=== PATIENT | male | born 1955 | race Caucasian/White ===

== ENCOUNTER 2016-09-10 09:59 | Outpatient (CLI) | payer OTHER | END 2016-09-10 10:00 | disposition home or self-care (01) | DX: I10 Essential (primary) hypertension (principal); E78.5 Hyperlipidemia, unspecified; Z12.5 Encounter for screening for malignant neoplasm of prostate; I35.0 Nonrheumatic aortic (valve) stenosis ==

== ENCOUNTER 2016-09-26 09:14 | Outpatient (CLI) | payer OTHER | END 2016-09-26 09:15 | disposition home or self-care (01) | DX: I08.0 Rheumatic disorders of both mitral and aortic valves (principal) ==

== ENCOUNTER 2018-03-19 13:51 | Outpatient (CLI) | payer OTHER | END 2018-03-19 13:52 | disposition home or self-care (01) | LOC: DI 13:51 | PROVIDERS: ATTEND Internal Medicine | DX: I48.0 Paroxysmal atrial fibrillation (principal); I08.0 Rheumatic disorders of both mitral and aortic valves | CPT/HCPCS: 93306 ==

== ENCOUNTER 2018-03-24 10:27 | Outpatient (CLI) | payer OTHER ==
[2018-03-24 11:14] LABS: INR 2.6 (0.8-1.2); PT - PROTHROMBIN TIME 28.3 secs (9.9-12.6)
== END 2018-03-24 10:28 | disposition home or self-care (01) ==
LOC: LAB 10:27
PROVIDERS: ATTEND Internal Medicine Cardiovascular Disease
DX: I48.0 Paroxysmal atrial fibrillation (principal)
CPT/HCPCS: 36415; 85610

== ENCOUNTER 2018-03-27 08:00 | Outpatient (CLI) | payer OTHER | END 2018-03-27 08:01 | disposition home or self-care (01) | LOC: LAB.N 08:00 | PROVIDERS: ATTEND Internal Medicine Cardiovascular Disease | DX: I48.0 Paroxysmal atrial fibrillation (principal) | CPT/HCPCS: 85610 ==

== ENCOUNTER 2018-03-30 09:04 | Outpatient (CLI) | payer OTHER | END 2018-03-30 09:05 | disposition home or self-care (01) | LOC: LAB.N 09:04 | PROVIDERS: ATTEND Internal Medicine Cardiovascular Disease | DX: I48.0 Paroxysmal atrial fibrillation (principal) | CPT/HCPCS: 85610 ==

== ENCOUNTER 2018-04-07 08:00 | Outpatient (CLI) | payer OTHER | END 2018-04-07 08:01 | disposition home or self-care (01) | LOC: LAB.N 08:00 | PROVIDERS: ATTEND Internal Medicine Cardiovascular Disease | DX: I48.0 Paroxysmal atrial fibrillation (principal) | CPT/HCPCS: 85610 ==

== ENCOUNTER 2018-04-10 07:22 | Outpatient (CLI) | payer OTHER | END 2018-04-10 07:23 | disposition home or self-care (01) | LOC: LAB.F 07:22 | PROVIDERS: ATTEND Internal Medicine Cardiovascular Disease | DX: I48.0 Paroxysmal atrial fibrillation (principal) | CPT/HCPCS: 85610 ==

== ENCOUNTER 2018-04-14 08:00 | Outpatient (CLI) | payer OTHER | END 2018-04-14 08:01 | disposition home or self-care (01) | LOC: LAB.N 08:00 | PROVIDERS: ATTEND Internal Medicine Cardiovascular Disease | DX: I48.0 Paroxysmal atrial fibrillation (principal) | CPT/HCPCS: 85610 ==

== ENCOUNTER 2018-04-17 08:21 | Outpatient (CLI) | payer OTHER | END 2018-04-17 08:22 | disposition home or self-care (01) | LOC: LAB.N 08:21 | PROVIDERS: ATTEND Internal Medicine Cardiovascular Disease | DX: I48.0 Paroxysmal atrial fibrillation (principal) | CPT/HCPCS: 85610 ==

== ENCOUNTER 2018-04-23 08:06 | Outpatient (CLI) | payer OTHER | END 2018-04-23 08:07 | disposition home or self-care (01) | LOC: LAB.N 08:06 | PROVIDERS: ATTEND Internal Medicine Cardiovascular Disease | DX: I48.0 Paroxysmal atrial fibrillation (principal) | CPT/HCPCS: 85610 ==

== ENCOUNTER 2018-04-28 07:55 | Outpatient (CLI) | payer OTHER | END 2018-04-28 07:56 | disposition home or self-care (01) | LOC: LAB.N 07:55 | PROVIDERS: ATTEND Internal Medicine Cardiovascular Disease | DX: I48.0 Paroxysmal atrial fibrillation (principal) | CPT/HCPCS: 85610 ==

== ENCOUNTER 2018-05-04 07:52 | Outpatient (CLI) | payer OTHER | END 2018-05-04 07:53 | disposition home or self-care (01) | LOC: LAB.N 07:52 | PROVIDERS: ATTEND Internal Medicine Cardiovascular Disease | DX: I48.0 Paroxysmal atrial fibrillation (principal) | CPT/HCPCS: 85610 ==

== ENCOUNTER 2018-05-22 08:34 | Outpatient (CLI) | payer OTHER | END 2018-05-22 08:35 | disposition home or self-care (01) | LOC: LAB.F 08:34 | PROVIDERS: ATTEND Family Medicine | DX: Z79.01 Long term (current) use of anticoagulants (principal) | CPT/HCPCS: 85610 ==

== ENCOUNTER 2018-05-25 07:47 | Outpatient (CLI) | payer OTHER | END 2018-05-25 07:48 | disposition home or self-care (01) | LOC: LAB.N 07:47 | PROVIDERS: ATTEND Internal Medicine Cardiovascular Disease | DX: I48.0 Paroxysmal atrial fibrillation (principal); Z79.01 Long term (current) use of anticoagulants | CPT/HCPCS: 85610 ==

== ENCOUNTER 2018-06-01 07:40 | Outpatient (CLI) | payer OTHER | END 2018-06-01 07:41 | disposition home or self-care (01) | LOC: LAB.N 07:40 | PROVIDERS: ATTEND Internal Medicine | DX: Z95.2 Presence of prosthetic heart valve (principal) | CPT/HCPCS: 85610 ==

== ENCOUNTER 2018-06-08 08:00 | Outpatient (CLI) | payer OTHER | END 2018-06-08 08:01 | disposition home or self-care (01) | LOC: LAB.N 08:00 | PROVIDERS: ATTEND Internal Medicine | DX: Z95.2 Presence of prosthetic heart valve (principal) | CPT/HCPCS: 85610 ==

== ENCOUNTER 2018-07-06 08:04 | Outpatient (CLI) | payer OTHER | END 2018-07-06 08:05 | disposition home or self-care (01) | LOC: LAB.N 08:04 | PROVIDERS: ATTEND Internal Medicine | DX: Z95.2 Presence of prosthetic heart valve (principal) | CPT/HCPCS: 85610 ==

== ENCOUNTER 2018-07-13 07:40 | Outpatient (CLI) | payer OTHER | END 2018-07-13 07:41 | disposition home or self-care (01) | LOC: LAB.N 07:40 | PROVIDERS: ATTEND Internal Medicine | DX: Z95.2 Presence of prosthetic heart valve (principal) | CPT/HCPCS: 85610 ==

== ENCOUNTER 2018-07-17 07:40 | Outpatient (CLI) | payer OTHER ==
[2018-07-17 12:21] LABS: PT - PROTHROMBIN TIME 22.6 secs (9.9-12.6)
== END 2018-07-17 07:41 | disposition home or self-care (01) ==
LOC: LAB.N 07:40
PROVIDERS: ATTEND Internal Medicine
DX: Z79.01 Long term (current) use of anticoagulants (principal)
CPT/HCPCS: 36415; 85610

== ENCOUNTER 2018-07-27 11:42 | Outpatient (CLI) | payer OTHER | END 2018-07-27 11:43 | disposition home or self-care (01) | LOC: LAB.N 11:42 | PROVIDERS: ATTEND Internal Medicine | DX: Z95.2 Presence of prosthetic heart valve (principal) | CPT/HCPCS: 85610 ==

== ENCOUNTER 2018-08-04 08:00 | Outpatient (CLI) | payer OTHER | END 2018-08-04 08:01 | disposition home or self-care (01) | LOC: LAB.N 08:00 | PROVIDERS: ATTEND Internal Medicine | DX: Z95.2 Presence of prosthetic heart valve (principal) | CPT/HCPCS: 85610 ==

== ENCOUNTER 2018-09-04 10:56 | Outpatient (CLI) | payer OTHER | END 2018-09-04 23:59 | disposition home or self-care (01) | LOC: LAB.N 10:56 | PROVIDERS: ATTEND Internal Medicine | DX: Z95.2 Presence of prosthetic heart valve (principal) | CPT/HCPCS: 85610 ==

== ENCOUNTER 2018-10-16 08:00 | Outpatient (CLI) | payer BC | END 2018-10-16 23:59 | disposition home or self-care (01) | LOC: LAB.N 08:00 | PROVIDERS: ATTEND Internal Medicine | DX: Z95.2 Presence of prosthetic heart valve (principal) | CPT/HCPCS: 85610 ==

== ENCOUNTER 2018-11-23 10:40 | Outpatient (CLI) | payer BC | END 2018-11-23 23:59 | LOC: LAB.N 10:40 | PROVIDERS: ATTEND Internal Medicine | DX: Z95.2 Presence of prosthetic heart valve (principal) | CPT/HCPCS: 85610 ==

== ENCOUNTER 2018-12-02 08:00 | Outpatient (CLI) | payer BC | END 2018-12-02 23:59 | disposition home or self-care (01) | LOC: LAB.N 08:00 | PROVIDERS: ATTEND Internal Medicine | DX: Z95.2 Presence of prosthetic heart valve (principal) | CPT/HCPCS: 85610 ==

== ENCOUNTER 2018-12-11 14:54 | Emergency (ER) | payer OTHER, BC ==
[2018-12-11 15:04] VITALS: BP 154/74
--- NOTE | 2018-12-11 15:30 | ED Physician Documentation ---
PD HPI LOWER EXT INJURY - Stated complaint Stated Complaint: L KNEE INJ - Chief complaint Chief Complaint: General - History obtained from History obtained from: Patient - History of Present Illness PD HPI LOW EXT INJURY LOCATION: Left, Knee Type of injury: Twist Where injury occurred: Work Timing - onset: How many hours ago (2) Timing - duration: Hours (2) Timing - details: Abrupt onset Pain level max: 6 Pain level now: 2 Improved by: Rest, Ice, Immobilization Worsened by: Moving, Palpating, Other (walking) Associated symptoms: No: Weakness, Numbness, Tingling, Swelling Contributing factors: No: Anticoagulated, Prior ortho surgery Recently seen: Not recently seen - Additional information Additional information: Patient twisted his left knee stepping out of an ambulance Review of Systems Constitutional: denies: Fever GI: denies: Vomiting Musculoskeletal: denies: Neck pain, Back pain Neurologic: denies: Headache PD PAST MEDICAL HISTORY - Past Medical History Past Medical History: No - Allergies Allergies/Adverse Reactions: Allergies Allergy/AdvReac Type Severity Reaction Status Date / Time No Known Drug Allergies Allergy Verified 12/11/18 15:04 - Social History Does the pt smoke?: No Smoking Status: Never smoker PD ED PE NORMAL - Vitals Vital signs reviewed: Yes - General General: Alert and oriented X 3, No acute distress - HEENT HEENT: Moist mucous membranes - Neck Neck: Supple, no meningeal sign - Cardiac Cardiac: RRR - Respiratory Respiratory: No respiratory distress, Clear bilaterally - Derm Derm: Warm and dry - Extremities Extremities: Other (Left knee -No joint effusion. No swelling. No bony te nderness. ACL, MCL, PCL, LCL are intact. Neurovascularly intact) - Neuro Neuro: Alert and oriented X 3 - Psych Psych: Normal mood, Normal affect Results - Vitals Vitals: Vital Signs - 24 hr 12/11/18 15:02 Temperature 36.4 C L Heart Rate 81 Respiratory 16 Rate Blood Pressure 154/74 H O2 Saturation 97 Oxygen O2 Source Room air - Rads (name of study) Left knee x-ray Radiology: Prelim report reviewed, EMP read contemporaneously, See rad report (Degenerative changes with small effusion. No acute fracture. ) PD MEDICAL DECISION MAKING - ED course Complexity details: reviewed results, re-evaluated patient, considered differential, d/w patient ED course: 63-year-old male presents the emergency department with what appears to be a left knee sprain. Small joint effusion. Placed in an articulating knee brace for comfort. Will follow up with his doctor. Patient counseled regarding signs and symptoms for which I believe and urgent re-evaluation would be necessary. Patient with good understanding of and agreement to plan and is comfortable going home at this time This document was made in part using voice recognition software. While efforts are made to proofread this document, sound alike and grammatical errors may occur. Departure - Departure Disposition: 01 Home, Self Care Clinical Impression: Left knee sprain Qualifiers: Encounter type: initial encounter Involved ligament of knee: unspecified ligament Qualified Code(s): S83.92XA - Sprain of unspecified site of left knee, initial encounter Osteoarthritis Qualifiers: Osteoarthritis location: unspecified site Osteoarthritis type: unspecified Qualified Code(s): M19.90 - Unspecified osteoarthritis, unspecified site Condition: Good Instructions: ED Sprain Knee Follow-Up: Avtar Torres MD [Primary Care Provider] - Within 1 week Comments: Wear the brace for comfort. Return if you worsen. You need to be reevaluated by your doctor prior to returning to work. Your x-ray shows a small joint effusion and arthritis in the knee. Forms: Activity restrictions Discharge Date/Time: 12/11/18 16:41
--- NOTE | 2018-12-11 15:52 | XRAY Report ---
Reason: L knee twist Procedure Date: 12/11/2018 Accession Number: [id number] / [id number] Procedure: XR - Knee 4 View LT CPT Code: FULL RESULT: EXAM: LEFT KNEE RADIOGRAPHY EXAM DATE: 12/11/2018 03:39 PM. CLINICAL HISTORY: Left knee twist. COMPARISON: None. TECHNIQUE: 3 views. FINDINGS: Bones: No acute fracture or bone lesion. Moderate to large spurring off the anterior patella at the patella tendon attachments. Mild prominence of the anterior tibial apophysis. Joints: Mild 3 compartment osteophyte greatest in the patellofemoral compartment. Moderate osteophyte of the proximal tib-fib articulation. Small suprapatellar effusion. Soft Tissues: Normal. No soft tissue swelling. IMPRESSION: Degenerative changes with small effusion. No acute fracture. RADIA
== END 2018-12-11 16:41 | disposition home or self-care (01) ==
LOC: ED 14:54
DX: S83.92XA Sprain of unspecified site of left knee, initial encounter (principal); X50.1XXA Overexertion from prolonged static or awkward postures, initial encounter; Y99.0 Civilian activity done for income or pay; M19.90 Unspecified osteoarthritis, unspecified site
CPT/HCPCS: 99283

== ENCOUNTER 2018-12-31 07:56 | Outpatient (CLI) | payer BC | END 2018-12-31 23:59 | disposition home or self-care (01) | LOC: LAB.N 07:56 | PROVIDERS: ATTEND Internal Medicine | DX: Z95.2 Presence of prosthetic heart valve (principal) | CPT/HCPCS: 85610 ==

== ENCOUNTER 2019-01-01 08:47 | Outpatient (CLI) | payer OTHER ==
[~2019-01-01 08:47] MED LIST: BUFFERED LIDOCAINE 10 ML SYRINGE ONE; GADOPENTETATE DIMEGLUMINE 5 ML VIAL IVP ONE; IOTHALAMATE MEGLUMINE 50 ML VIAL ONE
--- NOTE | 2019-01-01 12:32 | XRAY Report ---
Reason: KNEE JOINT PAIN,LEFT Procedure Date: 01/01/2019 Accession Number: [id number] / [id number] Procedure: FL - Arthrogram Needle Placement CPT Code: FULL RESULT: EXAM: LEFT KNEE ARTHROGRAPHIC INJECTION WITH FLUOROSCOPIC GUIDANCE EXAM DATE: 01/01/2019 09:59 AM. CLINICAL HISTORY: Knee joint pain, left. COMPARISON: ARTHROGRAM KNEE LT 01/01/2019 10:28 AM. TECHNIQUE: The risks, benefits, and alternatives of the procedure were discussed with the patient. All questions were answered. Written and verbal consent were obtained. The knee joint was marked under fluoroscopy and prepped and draped in a sterile manner. Local anesthesia was performed with 1% lidocaine. A 22-gauge needle was then inserted into the knee joint. 20 mL of a solution containing 50% iodinated contrast and a 1:200 dilution of gadolinium contrast in sterile saline was then injected. The needle was removed without immediate complication. Other: None. Fluoroscopy Time: 0.1 minutes. Number of Images: 12. FINDINGS: Bones and joints: No fracture or subluxation. Injection: Fluoroscopic images demonstrate needle placement and contrast in the knee joint. IMPRESSION: Successful fluoroscopically guided arthrographic injection of the knee. RADIA
[2019-01-01] MEDS ORDERED: GADOPENTETATE DIMEGLUMINE 5 ML VIAL IVP ONE ×2 (15:19)
[2019-01-01] MEDS ORDERED: BUFFERED LIDOCAINE 10 ML SYRINGE IU ONE ×2 (15:19)
[2019-01-01] MEDS ORDERED: IOTHALAMATE MEGLUMINE 50 ML VIAL IVP ONE ×2 (15:19)
--- NOTE | 2019-01-01 16:44 | MRI Report ---
Reason: KNEE JOINT PAIN,LEFT Procedure Date: 01/01/2019 Accession Number: [id number] / [id number] Procedure: MRI - Arthrogram Knee LT CPT Code: FULL RESULT: EXAM: LEFT KNEE MRI ARTHROGRAM WITH CONTRAST EXAM DATE: 01/01/2019 10:28 AM. CLINICAL HISTORY: Left knee joint pain. COMPARISON: KNEE 4 VIEW LT 12/11/2018 3:17 PM. TECHNIQUE: Multiplanar, multisequence T1-weighted and fluid-sensitive sequences of the knee after an arthrographic injection of dilute gadolinium, dictated under a separate exam. Other: None. FINDINGS: Bones: No fractures or subluxations. No marrow edema. No bone lesions. Mild spurring medial femoral condyle. Mild spurring medial patellar facet. Large superior and inferior patella enthesophytes. Mild spurring anterior aspect medial femoral condyle. Moderate spurring posterior aspect medial distal femur metaphysis superior gutter. Articular Cartilage: Moderate grade 3 chondromalacia medial femoral condyle. Mild chondromalacia trochlear groove. Mild focal chondromalacia medial patellar facet. Medial Meniscus: Radial oblique tear posterior horn medial meniscus at the meniscal root. Oblique tear medial meniscus body with extension to the inferior articular surface. Lateral Meniscus: The lateral meniscus is intact. Cruciate Ligaments: The anterior and posterior cruciate ligaments are intact. Collateral Ligaments: The medial collateral and lateral collateral ligamentous structures are intact. Tendons: The quadriceps, patellar, semimembranosus, and popliteus tendons are unremarkable. Musculature: No edema or fatty atrophy. Other: No popliteal cyst. Cluster of 6 mm or less osseous bodies posterior joint space intercondylar fossa. The medial and lateral retinacula are intact. The subcutaneous tissues and fat pads are unremarkable. Large 1.1 cm osteophyte medial aspect proximal tibiofibular articulation. Probable osseous body 8 mm anterior aspect anterior horn lateral meniscus posterior margin infrapatellar fat pad. Possible osseous body 9 mm deep to the iliotibial band adjacent to the lateral condyle superior gutter (image 3 series 501). IMPRESSION: 1. Radial oblique tear posterior horn medial meniscus at the meniscal root and oblique tear medial meniscus body with extension to the inferior articular surface. 2. Large superior and inferior patella enthesophytes at the quadriceps tendon insertion and patellar tendon origin. Correlate with seronegative spondyloarthropathy. 3. Osseous body 8 mm anterior aspect anterior horn lateral meniscus posterior margin of the infrapatellar fat pad. 4. Cluster of multiple 6 mm or less osseous bodies posterior joint space intercondylar fossa (image 17 series 501). 5. Large osteophyte medial aspect proximal tibiofibular articulation. RADIA
== END 2019-01-01 08:48 | disposition home or self-care (01) ==
LOC: DI 08:47
PROVIDERS: ATTEND Physician Assistant Medical
DX: S83.242A Other tear of medial meniscus, current injury, left knee, initial encounter (principal); M76.892 Other specified enthesopathies of left lower limb, excluding foot; M23.42 Loose body in knee, left knee; M25.762 Osteophyte, left knee
CPT/HCPCS: 27369; 73722; 77002; Q9961

== ENCOUNTER 2019-01-08 13:29 | Outpatient (CLI) | payer BC | END 2019-01-08 23:59 | disposition home or self-care (01) | LOC: LAB.N 13:29 | PROVIDERS: ATTEND Internal Medicine | DX: Z95.2 Presence of prosthetic heart valve (principal) | CPT/HCPCS: 85610 ==

== ENCOUNTER 2019-01-19 07:27 | Outpatient (CLI) | payer BC | END 2019-01-19 07:28 | disposition home or self-care (01) | LOC: LAB.F 07:27 | PROVIDERS: ATTEND Internal Medicine | DX: Z95.2 Presence of prosthetic heart valve (principal) | CPT/HCPCS: 85610 ==

== ENCOUNTER 2019-02-11 14:55 | Outpatient (CLI) | payer BC | END 2019-02-11 23:59 | disposition home or self-care (01) | LOC: LAB.N 14:55 | PROVIDERS: ATTEND Internal Medicine | DX: Z95.2 Presence of prosthetic heart valve (principal) | CPT/HCPCS: 85610 ==

== ENCOUNTER 2019-03-02 08:00 | Outpatient (CLI) | payer BC | END 2019-03-02 08:01 | disposition home or self-care (01) | LOC: LAB.N 08:00 | PROVIDERS: ATTEND Internal Medicine | DX: Z95.2 Presence of prosthetic heart valve (principal) | CPT/HCPCS: 85610 ==

== ENCOUNTER 2019-03-12 09:31 | Outpatient (CLI) | payer BC | END 2019-03-12 23:59 | disposition home or self-care (01) | LOC: LAB.N 09:31 | PROVIDERS: ATTEND Internal Medicine | DX: Z95.2 Presence of prosthetic heart valve (principal) | CPT/HCPCS: 85610 ==

== ENCOUNTER 2019-04-20 08:00 | Outpatient (CLI) | payer BC | END 2019-04-20 23:59 | disposition home or self-care (01) | LOC: LAB.N 08:00 | PROVIDERS: ATTEND Internal Medicine | DX: Z95.2 Presence of prosthetic heart valve (principal) | CPT/HCPCS: 85610 ==

== ENCOUNTER 2019-05-03 14:29 | Outpatient (CLI) | payer BC | END 2019-05-03 14:35 | disposition home or self-care (01) | LOC: LAB.N 14:29 | PROVIDERS: ATTEND Family Medicine | DX: I48.0 Paroxysmal atrial fibrillation (principal); Z79.01 Long term (current) use of anticoagulants | CPT/HCPCS: 85610 ==

== ENCOUNTER 2019-05-31 08:00 | Outpatient (CLI) | payer BC | END 2019-05-31 08:15 | disposition home or self-care (01) | LOC: LAB.N 08:00 | PROVIDERS: ATTEND Family Medicine | DX: I48.0 Paroxysmal atrial fibrillation (principal); Z79.01 Long term (current) use of anticoagulants | CPT/HCPCS: 85610 ==

== ENCOUNTER 2019-06-07 08:00 | Outpatient (CLI) | payer BC | END 2019-06-07 08:15 | disposition home or self-care (01) | LOC: LAB.N 08:00 | PROVIDERS: ATTEND Family Medicine | DX: I48.0 Paroxysmal atrial fibrillation (principal); Z79.01 Long term (current) use of anticoagulants | CPT/HCPCS: 85610 ==

== ENCOUNTER 2019-06-21 08:26 | Outpatient (CLI) | payer BC | END 2019-06-21 23:59 | disposition home or self-care (01) | LOC: LAB.N 08:26 | PROVIDERS: ATTEND Family Medicine | DX: I48.0 Paroxysmal atrial fibrillation (principal); Z79.01 Long term (current) use of anticoagulants | CPT/HCPCS: 85610 ==

== ENCOUNTER 2019-06-30 07:53 | Outpatient (CLI) | payer BC | END 2019-06-30 23:59 | disposition home or self-care (01) | LOC: LAB.N 07:53 | PROVIDERS: ATTEND Family Medicine | DX: I48.0 Paroxysmal atrial fibrillation (principal); Z79.01 Long term (current) use of anticoagulants | CPT/HCPCS: 85610 ==

== ENCOUNTER 2019-07-08 08:00 | Outpatient (CLI) | payer BC | END 2019-07-08 23:59 | disposition home or self-care (01) | LOC: LAB.N 08:00 | PROVIDERS: ATTEND Family Medicine | DX: I48.0 Paroxysmal atrial fibrillation (principal); Z79.01 Long term (current) use of anticoagulants | CPT/HCPCS: 85610 ==

== ENCOUNTER 2019-09-24 08:00 | Outpatient (CLI) | payer BC | END 2019-09-24 23:59 | disposition home or self-care (01) | LOC: LAB.N 08:00 | PROVIDERS: ATTEND Family Medicine | DX: Z79.01 Long term (current) use of anticoagulants (principal); I48.0 Paroxysmal atrial fibrillation | CPT/HCPCS: 85610 ==

== ENCOUNTER 2019-10-22 08:33 | Outpatient (CLI) | payer BC | END 2019-10-22 23:59 | disposition home or self-care (01) | LOC: LAB.N 08:33 | PROVIDERS: ATTEND Family Medicine | DX: I48.0 Paroxysmal atrial fibrillation (principal); Z79.01 Long term (current) use of anticoagulants | CPT/HCPCS: 85610 ==

== ENCOUNTER 2020-01-11 08:56 | Outpatient (CLI) | payer BC | END 2020-01-11 08:57 | disposition home or self-care (01) | LOC: LAB 08:56 | PROVIDERS: ATTEND Family Medicine | DX: I48.0 Paroxysmal atrial fibrillation (principal); Z79.01 Long term (current) use of anticoagulants | CPT/HCPCS: 85610 ==

== ENCOUNTER 2020-01-20 09:32 | Outpatient (CLI) | payer BC | END 2020-01-20 09:33 | disposition home or self-care (01) | LOC: LAB 09:32 | PROVIDERS: ATTEND Family Medicine | DX: I48.0 Paroxysmal atrial fibrillation (principal); Z79.01 Long term (current) use of anticoagulants | CPT/HCPCS: 85610 ==

== ENCOUNTER 2020-02-09 08:33 | Outpatient (CLI) | payer BC | END 2020-02-09 08:34 | disposition home or self-care (01) | LOC: LAB 08:33 | PROVIDERS: ATTEND Family Medicine | DX: I48.0 Paroxysmal atrial fibrillation (principal); Z79.01 Long term (current) use of anticoagulants | CPT/HCPCS: 85610 ==

== ENCOUNTER 2020-05-11 08:48 | Outpatient (CLI) | payer BC | END 2020-05-11 08:49 | disposition home or self-care (01) | LOC: LAB 08:48 | PROVIDERS: ATTEND Family Medicine | DX: I48.0 Paroxysmal atrial fibrillation (principal); Z79.01 Long term (current) use of anticoagulants | CPT/HCPCS: 85610 ==

== ENCOUNTER 2020-05-19 08:11 | Outpatient (CLI) | payer BC | END 2020-05-19 08:12 | disposition home or self-care (01) | LOC: LAB 08:11 | PROVIDERS: ATTEND Family Medicine | DX: I48.0 Paroxysmal atrial fibrillation (principal); Z79.01 Long term (current) use of anticoagulants | CPT/HCPCS: 85610 ==

== ENCOUNTER 2020-06-01 11:33 | Emergency (ER) | payer BC ==
--- NOTE | 2020-06-01 12:48 | ED Physician Documentation ---
History of Present Illness - Stated complaint Stated Complaint: R HAND SWELLING/BRUISING - Chief complaint Chief Complaint: Ext Problem - History obtained from History obtained from: Patient - Additonal information Additional information: 65 yo M who is on coumadin presents with right forearm swelling and contusion. Pt states that about a week ago he was showing off for his grandkids and was doing one-armed push ups. He felt a pop in his forearm and thereafter had a large contusion of the forearm. The bruising is improving though he continues to have some swelling in the hand distal to the injury. He has no pain, no paraesthesia, no difficulty moving the arm. Hasn't attempted any medication for this but has been trying to keep it elevated. Review of Systems Ten Systems: 10 systems reviewed and negative PD PAST MEDICAL HISTORY - Allergies Allergies/Adverse Reactions: Allergies Allergy/AdvReac Type Severity Reaction Status Date / Time No Known Drug Allergies Allergy Verified 06/01/20 11:40 - Social History Does the pt smoke?: No Smoking Status: Never smoker PD ED PE NORMAL - Vitals Vital signs reviewed: Yes - General General: Alert and oriented X 3, No acute distress, Well developed/nourished - Cardiac Cardiac: RRR, No murmur, No gallop, No rub - Respiratory Respiratory: No respiratory distress, Clear bilaterally - Derm Derm: Normal color, Warm and dry, Other (moderate contusion right forearm, forearm is soft and non-tender. No open areas of skin. ) - Extremities Extremities: No deformity, No tenderness to palpate, Normal ROM s pain, Other (mild swelling right hand, non-tender, no erythema. Contusion of the forearm non-tender, soft, as noted above. No erythema. Full elbow/wrist/hand ROM. ) - Neuro Neuro: Alert and oriented X 3 Eye Opening: Spontaneous Motor: Obeys Commands Verbal: Oriented GCS Score: 15 - Psych Psych: Normal mood, Normal affect Results - Vitals Vitals: Vital Signs - 24 hr 06/01/20 11:40 Temperature 36.9 C Heart Rate 70 Respiratory 16 Rate Blood Pressure 142/69 H O2 Saturation 97 Oxygen O2 Source Room air PD MEDICAL DECISION MAKING - ED course Complexity details: considered differential, d/w patient ED course: Pt presented w/ right forearm contusion. He showed me a picture from several days ago and there is notable improvement in the contusion today. He had mild right hand swelling but no erythema or signs of infection. He has no tenderness and has full ROM of the forearm. He likely tore some muscle when attempting one- armed pushups and bled into the forearm, which was worsened since he is on coumadin. The contusion is soft, there is no hematoma, and I advised pt that it would dissipate w/ time. No specific imaging or intervention is necessary, pt may keep the limb elevated. Return precautions reviewed w/ pt. Departure - Departure Disposition: 01 Home, Self Care Clinical Impression: Contusion of muscle, Bleeding on Coumadin Condition: Good Comments: You presented with left arm swelling and bruising after likely tearing muscles in your forearm. You are on coumadin which can cause more bleeding and bruising. The bruising is improving and will continue to improve over the next days to weeks. There is no specific treatment, but you can elevate your arm to help with the swelling. If you develop sudden pain, paraesthesia, or feel it is worsening, follow up with primary doctor or return to the ER.
[2020-06-01 13:16] VITALS: BP 135/75
== END 2020-06-01 13:17 | disposition home or self-care (01) ==
LOC: ED 11:33
DX: S50.11XA Contusion of right forearm, initial encounter (principal); X58.XXXA Exposure to other specified factors, initial encounter; Y93.B2 Activity, push-ups, pull-ups, sit-ups; Z79.01 Long term (current) use of anticoagulants; I48.0 Paroxysmal atrial fibrillation
CPT/HCPCS: 85610; 99281

== ENCOUNTER 2020-06-01 12:48 | Outpatient (CLI) | payer BC | END 2020-06-01 12:49 | disposition home or self-care (01) | LOC: LAB 12:48 | PROVIDERS: ATTEND Family Medicine | DX: I48.0 Paroxysmal atrial fibrillation (principal); Z79.01 Long term (current) use of anticoagulants | CPT/HCPCS: 85610 ==

== ENCOUNTER 2020-06-29 08:28 | Outpatient (CLI) | payer BC | END 2020-06-29 08:29 | disposition home or self-care (01) | LOC: LAB 08:28 | PROVIDERS: ATTEND Family Medicine | DX: I48.0 Paroxysmal atrial fibrillation (principal); Z79.01 Long term (current) use of anticoagulants | CPT/HCPCS: 85610 ==

== ENCOUNTER 2020-07-19 09:25 | Outpatient (CLI) | payer BC | END 2020-07-19 09:26 | disposition home or self-care (01) | LOC: LAB.N 09:25 | PROVIDERS: ATTEND Family Medicine | DX: I48.0 Paroxysmal atrial fibrillation (principal); Z79.01 Long term (current) use of anticoagulants | CPT/HCPCS: 85610 ==

== ENCOUNTER 2020-08-30 09:43 | Outpatient (CLI) | payer BC ==
[2020-08-30 11:59] LABS: INR 2.8 (0.8-1.2); PT - PROTHROMBIN TIME 29.3 secs (9.9-12.6)
== END 2020-08-30 09:44 | disposition home or self-care (01) ==
LOC: LAB.N 09:43
PROVIDERS: ATTEND Family Medicine
DX: I48.0 Paroxysmal atrial fibrillation (principal); Z79.01 Long term (current) use of anticoagulants
CPT/HCPCS: 36415; 85610

== ENCOUNTER 2020-11-27 08:40 | Outpatient (CLI) | payer BC ==
[2020-11-27 12:14] LABS: BASOPHILS # (AUTO) 0.1 10^3/uL (0.0-0.1); BASOPHILS % (AUTO) 0.8 %; EOSINOPHILS # (AUTO) 0.2 10^3/uL (0.0-0.7); EOSINOPHILS % (AUTO) 3.7 %; HCT - HEMATOCRIT 44.1 % (42.0-52.0); HGB - HEMOGLOBIN 14.9 g/dL (14.0-18.0); LYMPHOCYTES # (AUTO) 1.4 10^3/uL (1.5-3.5); LYMPHOCYTES % (AUTO) 22.8 %; MEAN CORPUSCULAR HEMOGLOBIN 31.8 pg (27.0-31.0); MEAN CORPUSCULAR HGB CONC 33.8 g/dL (32.0-36.0); MEAN PLATELET VOLUME 13.6 fL (7.4-11.4); MONOCYTES # (AUTO) 0.6 10^3/uL (0.0-1.0); MONOCYTES % (AUTO) 9.4 %; NEUTROPHILS # (AUTO) 3.9 10^3/uL (1.5-6.6); PLT - PLATELET COUNT 136 10^3/uL (130-450); RED BLOOD COUNT 4.69 10^6/uL (4.70-6.10); RED CELL DISTRIBUTION WIDTH 12.6 % (12.0-15.0); WHITE BLOOD COUNT 6.2 x10^3/uL (4.8-10.8)
[2020-11-27 12:21] LABS: INR 2.3 (0.8-1.2); PT - PROTHROMBIN TIME 24.5 secs (9.9-12.6)
[2020-11-27 12:40] LABS: BUN - BLOOD UREA NITROGEN 16 mg/dL (6-20); CALCIUM 9.3 mg/dL (8.5-10.3); CARBON DIOXIDE - CO2 27 mmol/L (21-32); CHLORIDE 102 mmol/L (101-111); CHOL/HDL RATIO 4.3 (<5.0); CHOLESTEROL 183 mg/dL; CREATININE 0.8 mg/dL (0.6-1.2); GFR - MDRD 97 (>89); GLUCOSE 105 mg/dL (70-100); HDL CHOLESTEROL 43 mg/dL; LDL CHOLESTEROL,CALCULATED 91 mg/dL; LDL/HDL RATIO 2.1 (<3.6); POTASSIUM 4.2 mmol/L (3.5-5.0); SODIUM 137 mmol/L (135-145); TRIGLYCERIDES 246 mg/dL; VLDL CHOLESTEROL 49 mg/dL
== END 2020-11-27 08:41 | disposition home or self-care (01) ==
LOC: LAB.N 08:40
PROVIDERS: ATTEND Family Medicine
DX: I48.19 Other persistent atrial fibrillation (principal); Z79.01 Long term (current) use of anticoagulants; Z95.2 Presence of prosthetic heart valve; E78.5 Hyperlipidemia, unspecified
CPT/HCPCS: 36415; 80048; 80053; 80061; 83721; 85025; 85610

== ENCOUNTER 2021-09-17 07:00 | Outpatient (CLI) | payer BC ==
[2021-09-17 13:30] LABS: BASOPHILS # (AUTO) 0.1 10^3/uL (0.0-0.1); EOSINOPHILS # (AUTO) 0.2 10^3/uL (0.0-0.7); HCT - HEMATOCRIT 46.7 % (42.0-52.0); HGB - HEMOGLOBIN 15.7 g/dL (14.0-18.0); LYMPHOCYTES # (AUTO) 2.1 10^3/uL (1.5-3.5); LYMPHOCYTES % (AUTO) 30.1 %; MEAN CORPUSCULAR HGB CONC 33.6 g/dL (32.0-36.0); MEAN CORPUSCULAR VOLUME 95.1 fL (80.0-94.0); MEAN PLATELET VOLUME 13.3 fL (7.4-11.4); MONOCYTES # (AUTO) 0.9 10^3/uL (0.0-1.0); MONOCYTES % (AUTO) 12.5 %; NEUTROPHILS # (AUTO) 3.7 10^3/uL (1.5-6.6); PLT - PLATELET COUNT 148 10^3/uL (130-450); RED BLOOD COUNT 4.91 10^6/uL (4.70-6.10)
[2021-09-17 13:46] LABS: BUN - BLOOD UREA NITROGEN 11 mg/dL (6-20); CALCIUM 9.7 mg/dL (8.5-10.3); CARBON DIOXIDE - CO2 28 mmol/L (21-32); CHLORIDE 101 mmol/L (101-111); CHOLESTEROL 180 mg/dL; CREATININE 0.9 mg/dL (0.6-1.2); GFR - MDRD 84 (>89); GLUCOSE 97 mg/dL (70-100); HDL CHOLESTEROL 45 mg/dL; LDL CHOLESTEROL,CALCULATED 107 mg/dL; LDL/HDL RATIO 2.4 (<3.6); POTASSIUM 4.5 mmol/L (3.5-5.0); SODIUM 140 mmol/L (135-145); TRIGLYCERIDES 138 mg/dL; VLDL CHOLESTEROL 28 mg/dL
== END 2021-09-17 07:01 | disposition home or self-care (01) ==
LOC: LAB.N 07:00
PROVIDERS: ATTEND Internal Medicine Cardiovascular Disease
DX: I48.19 Other persistent atrial fibrillation (principal); E78.5 Hyperlipidemia, unspecified
CPT/HCPCS: 36415; 80048; 80061; 83721; 85025

== ENCOUNTER 2022-06-08 15:50 | Emergency (ER) | payer OTHER, BC ==
[2022-06-08 16:12] VITALS: BP 156/109
[2022-06-08] MEDS ORDERED: LIDOCAINE PATCH 5% TOP STA (16:40)
[2022-06-08] MEDS ORDERED: ACETAMINOPHEN 325 MG TABLET PO STA (16:40)
[2022-06-08 16:57] LABS: INR 1.7 (0.8-1.2); PT - PROTHROMBIN TIME 18.7 secs (9.9-12.6)
--- NOTE | 2022-06-08 17:08 | XRAY Report ---
PROCEDURE: Knee 3 View RT INDICATIONS: heard pop/pain TECHNIQUE: 3 views of the right knee(s) were acquired. COMPARISON: None. FINDINGS: Bones: Moderate medial compartment joint space narrowing. Degenerative patellar enthesophytes muscle noted at the tibial tuberosity. Soft tissues: No joint effusion. No suspicious soft tissue calcifications. IMPRESSION: Degenerative changes without fracture Reviewed by: Rommel Main MD on 06/08/2022 4:06 PM AKDT Approved by: Rommel Main MD on 06/08/2022 4:06 PM AKDT Station ID: [id number]
--- NOTE | 2022-06-08 17:35 | ED Physician Documentation ---
PD HPI LOWER EXT INJURY - Stated complaint Stated Complaint: R LEG INJ - Chief complaint Chief Complaint: Ext Problem - History obtained from History obtained from: Patient - Additional information Additional information: Patient is a 67-year-old male presenting for evaluation of right knee pain that occurred just prior to arrival while working. 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 He felt his right knee pop and had sudden pain. He has pain with ambulating. He denies previous trauma to the affected extremity. 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 His most recent INR level was 2.7. He denies headache, dizziness, chest pain or difficulty breathing.He denies pain or injury elsewhere. He has not taken anything yet for the pain. Review of Systems Constitutional: denies: Fever Nose: denies: Congestion Throat: denies: Sore throat Cardiac: denies: Chest pain / pressure Respiratory: denies: Dyspnea GI: denies: Abdominal Pain Skin: denies: Laceration (s) Musculoskeletal: reports: Joint pain Neurologic: denies: Headache PD PAST MEDICAL HISTORY - Present Medications Home Medications: Ambulatory Orders Medication Instructions Recorded Confirmed Lidocaine Patch 5% [Lidoderm Patch] 1 patch TOP DAILY PRN #10 patch 06/08/22 - Allergies Allergies/Adverse Reactions: Allergies Allergy/AdvReac Type Severity Reaction Status Date / Time No Known Drug Allergies Allergy Verified 06/01/20 11:40 - Social History Does the pt smoke?: No Smoking Status: Never smoker PD ED PE NORMAL - General General: Alert and oriented X 3, No acute distress, Well developed/nourished - HEENT HEENT: Atraumatic - Cardiac Cardiac: Strong equal pulses - Respiratory Respiratory: No respiratory distress - Extremities Extremities: No deformity, No edema, No calf tenderness / cord, Other (Posterior right knee tenderness to palpation with no deformities or swelling, patient is able to fully extend and partially flex at the right knee, no bony tenderness over the femur or tibia/fibula. Pedal pulses intact, sensation grossly intact) Results - Vitals Vitals: Vital Signs - 24 hr 06/08/22 16:09 Temperature 37.0 C Heart Rate 78 Respiratory 18 Rate Blood Pressure 156/109 H O2 Saturation 99 Oxygen O2 Source Room air - Labs Labs: Laboratory Tests 06/08/22 16:45 PT 18.7 H INR 1.7 H PD MEDICAL DECISION MAKING - ED course Complexity details: reviewed results, re-evaluated patient, d/w patient ED course: Patient with right knee pain while lifting a patient. No deformities noted on exam and pedal pulses are intact. Mechanism does not suggest a knee dislocation. X-ray is negative for fracture or dislocation. There is a lot of degenerative changes which I reviewed with the patient. Patient is additionally on warfarin. His INR is subtherapeutic at 1.7. Recommend close follow-up with his primary care doctor regarding his knee injury as well as his subtherapeutic INR.Patient was offered pain medication but prefers lidocaine patches and acetaminophen. Departure - Departure Disposition: 01 Home, Self Care Clinical Impression: Subtherapeutic international normalized ratio (INR) Right knee injury Qualifiers: Encounter type: initial encounter Qualified Code(s): S89.91XA - Unspecified injury of right lower leg, initial encounter Condition: Stable Instructions: ED Knee Pain [facility] Prescriptions: Lidocaine Patch 5% [Lidoderm Patch] 1 patch TOP DAILY PRN #10 patch PRN Reason: pain Comments: You were evaluated for pain to your right knee. An x-ray does not show a broken or out of place bone. However there are several other structures in the knee joint including ligaments and meniscus which can get injured.We have placed you into a knee immobilizer and also given you crutches. I would recommend using the crutches and immobilizer as long as it is hurting to put weight on the leg. Please continue with ice, anti-inflammatories, lidocaine patches, elevation. We also checked your INR level and it was low at 1.7. I recommend taking an extra half dose of your Coumadin tomorrow and following up with your doctor on Friday. If you have any new or worsening symptoms please return to the emergency department. I sent a prescription for lidocaine patches to [facility] in [place]. Forms: Activity restrictions
== END 2022-06-08 17:55 | disposition home or self-care (01) ==
LOC: ED 15:50
DX: S89.91XA Unspecified injury of right lower leg, initial encounter (principal); X50.0XXA Overexertion from strenuous movement or load, initial encounter; Y99.0 Civilian activity done for income or pay; R79.1 Abnormal coagulation profile
CPT/HCPCS: 36415; 73562; 85610; 99284; A9270

== ENCOUNTER 2022-11-14 13:21 | Outpatient (CLI) | payer BC ==
--- NOTE | 2022-11-14 20:35 | XRAY Report ---
PROCEDURE: Cervical Spine Complete INDICATIONS: CERVICAL RADICULOPATHY TECHNIQUE: 4 views of the cervical spine acquired. COMPARISON: None. FINDINGS: Bones: Flowing bridging anterior osteophytes with relatively minor disc space narrowing particularly at C4-5. There is straightening of the normal cervical lordosis. Bilateral foraminal stenosis noted a t C3/C4 5 Soft tissues: No prevertebral soft tissue swelling. 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
--- NOTE | 2022-11-14 20:37 | XRAY Report ---
PROCEDURE: Shoulder 2 View LT INDICATIONS: IMPINGEMENT SYNDROME OF L SHLDR TECHNIQUE: 2 views of the shoulder were acquired. COMPARISON: None. FINDINGS: Bones: Humeral and clavicular degenerative arthritic changes present. No lytic or blastic lesion Soft tissues: No suspicious soft tissue calcifications. IMPRESSION: Arthritic changes without lytic or blastic lesion. Consider follow-up MR to evaluate for impingement syndrome Reviewed by: Rommel Main MD on 11/14/2022 7:36 PM AKST Approved by: Rommel Main MD on 11/14/2022 7:36 PM AKST Station ID: [id number]
== END 2022-11-14 13:22 | disposition home or self-care (01) ==
LOC: DI 13:21
PROVIDERS: ATTEND Family Medicine
DX: M75.42 Impingement syndrome of left shoulder (principal); M19.012 Primary osteoarthritis, left shoulder; M47.22 Other spondylosis with radiculopathy, cervical region; M25.78 Osteophyte, vertebrae

== ENCOUNTER 2023-02-13 12:52 | Outpatient (CLI) | payer BC ==
--- NOTE | 2023-02-13 13:28 | XRAY Report ---
PROCEDURE: Cervical Spine 2 View INDICATIONS: PARESTHESIA, CERVICAL RADICULOPATHY TECHNIQUE: 3 view(s) of the cervical spine were acquired. COMPARISON: None. FINDINGS: Bones: No fractures or dislocations to the T1 level. The lateral masses of C1 appear intact on the odontoid view. No suspicious bony lesions. There are flowing bulky anterior osteophytes extending f rom inferior C2-C7. In certain patients this can result in dysphagia. Multilevel uncovertebral joint hypertrophy and facet arthropathy. Soft tissues: No prevertebral soft tissue swelling. IMPRESSION: Prominent anterior osteophytosis. Concerning individual as this can result in dysphagia. Generalized cervical spondylitic change. Cervical spine MRI may be helpful. Reviewed by: Chris Yu MD on 02/13/2023 1:26 PM PDT Approved by: Chris Yu MD on 02/13/2023 1:26 PM PDT Station ID: [id number]
== END 2023-02-13 12:53 | disposition home or self-care (01) ==
LOC: DI.N 12:52
PROVIDERS: ATTEND Registered Nurse
DX: M47.812 Spondylosis without myelopathy or radiculopathy, cervical region (principal)

== ENCOUNTER 2023-03-21 09:12 | Outpatient (CLI) | payer BC ==
--- NOTE | 2023-03-21 15:43 | MRI Report ---
PROCEDURE: CERVICAL SPINE WO INDICATIONS: PARESTHESIA, CERVICAL RADICULOPATHY TECHNIQUE: Noncontrast sagittal T1 spin echo and T2 fast spin echo, sagittal STIR, foraminal oblique sagittal T2 fast spin echo, and axial gradient echo or T2 fast spin echo through the cervical spine. COMPARISON: X-ray from spine 02/14/2020 FINDINGS: Image quality: Excellent. Alignment and Curvature: There is normal bony alignment. Bone Marrow: Marrow demonstrates normal overall signal. Spinal Cord: Visualized spinal cord has normal size and signal. No cerebellar tonsillar herniation. Paraspinous Soft Tissues: No paravertebral masses. Prevertebral soft tissues are normal in thicknes s. Discs: Multilevel moderate desiccation is present. C2-C3: Mild disc bulge without spinal stenosis or foraminal narrowing. C3-C4: Mild disc bulge with small superimposed posterior central protrusion with mild spinal stenos is. Mild bilateral foraminal narrowing with uncovertebral hypertrophy. C4-C5: Mild disc bulge with mild spinal stenosis. Moderate bilateral foraminal narrowing with uncove rtebral hypertrophy. C5-C6: Mild disc bulge with minimal to mild spinal stenosis. Moderate left and [id number] righ t foraminal narrowing with uncovertebral hypertrophy. C6-C7: Mild disc bulge with moderate spinal stenosis. Moderate to severe bilateral foraminal narrowi ng with uncovertebral hypertrophy. C7-T1: Mild disc bulge without spinal stenosis. [id number] bilateral foraminal narrowing. IMPRESSION: Minimal disc bulge. Multilevel spinal stenosis most severe at C6-7 secondary to disc bulge with contributing effect of fa cet/ligamentum flavum arthropathy. Multilevel foraminal narrowing overall most severe at C6-7 secondary to uncovertebral arthropathy. Reviewed by: Delmi Gardiner MD on 03/21/2023 3:42 PM PDT Approved by: Delmi Gardiner MD on 03/21/2023 3:42 PM PDT Station ID: [id number]
== END 2023-03-21 09:13 | disposition home or self-care (01) ==
LOC: DI 09:12
PROVIDERS: ATTEND Registered Nurse
DX: M50.023 Cervical disc disorder at C6-C7 level with myelopathy (principal); M50.123 Cervical disc disorder at C6-C7 level with radiculopathy; M48.02 Spinal stenosis, cervical region; M47.22 Other spondylosis with radiculopathy, cervical region